=== PATIENT | female | born 1985 | race Caucasian/White ===

== ENCOUNTER 2019-11-17 00:15 | Inpatient (IN) | payer OTHER, MEDICAID ==
[~2019-11-17] VITALS: Ht 170.2 cm; Wt 63.0 kg
[2019-11-17 00:24] VITALS: BP 135/76
[2019-11-17] MEDS ORDERED: KLONOPIN1 MG PO (00:26)
[2019-11-17] MEDS ORDERED: BUSPAR30 MG PO (00:27)
[2019-11-17] MEDS ORDERED: METHADONE HCL50 GM PO (00:27)
[2019-11-17 01:15] LABS: ABSOLUTE BASOPHILS 0.1 thou/uL (0.0-0.2); ABSOLUTE EOSINOPHILS 0.3 thou/uL (0.0-0.7); ABSOLUTE LYMPHOCYTES 2.5 thou/uL (0.8-5.3); ABSOLUTE MONOCYTES 0.5 thou/uL (0.0-1.2); BASOPHILS 0.7 %; EOSINOPHILS 3.4 %; HEMATOCRIT 34.9 % (37.0-47.0); HEMOGLOBIN 12.4 gm/dL (12.0-15.0); LYMPHOCYTES 30.2 %; MCH 32.2 pg (26.0-34.0); MCHC 35.6 g/dL (28.0-37.0); MCV 90.4 fL (80.0-100.0); MONOCYTES 6.3 %; NUCLEATED RBCS 0 /100WBC; PLATELET COUNT* 224 thou/uL (150-400); POLYS 59.4 %; RBC 3.85 mil/uL (4.20-5.00); WBC 8.4 thou/uL (4.0-11.0)
[2019-11-17 01:21] LABS: CALCIUM 8.2 mg/dL (8.5-10.1); POTASSIUM 2.4 mmol/L (3.5-5.1)
[2019-11-17 03:19] VITALS: BP 143/79
[2019-11-17 04:00] VITALS: BP 125/83
--- NOTE | 2019-11-17 06:43 | NUR ---
PATIENT ARRIVED ON UNIT AT APPROX 0330. PATIENT ALERT AND ORIENTED TIMES FOUR. MINOR COMPLAINTS OF PAIN NOTED IN HER LEFT ARM, AT INCISION SITE. INDPENDENT WITH AMBULATION. VITAL SIGNS NORMAL. 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
--- NOTE | 2019-11-17 11:34 | NUR ---
SPOKE WITH PATIENT ABOUT FAMILY AND FRIENDS CALLING UP AND WANTING INFORMATION CONCERNING HER. PT AGREED THAT I SHOULD NOT GIVE HER MEDICAL INFORMATION OVER THE PHONE AND SHE WILL CALL HER FAMILY AND FRIENDS TO UPDATE THEM ON HER CONDITION.
--- NOTE | 2019-11-17 12:20 | NUR ---
Nutrition: Pt admitted with abscess on arm. Consult received for "other." Pt now on regular diet. Wt: 140#. No albumin recorded. Labs, meds, hx noted. Low nutrition risk at this time. GOALS: >75% of meals consumed.
--- NOTE | 2019-11-17 13:23 | NUR ---
Pt is A&O. Resides at home with family. Independent. No DME. No hx of HH or SNF. Goal is home at mo. Following.
--- NOTE | 2019-11-17 17:35 | NUR ---
SPOKE WITH PT AND SHE AGREED THAT THE HER PASS CODE PRIVACY CODE SHOULD BE 9828.
--- NOTE | 2019-11-17 17:38 | NUR ---
PT SEEM A LITTLE LETHARGIC, WILL HOLD METHADONE UNTIL THIS EVENING.
[2019-11-17 19:50] VITALS: BP 120/50
[2019-11-18] VITALS: BP 124/88
[2019-11-18 04:13] VITALS: BP 119/80
--- NOTE | 2019-11-18 07:27 | NUR ---
PT CARE ASSUMED AT 1930. SAT MAINTAINED IN RA. ALERT AND ORIENTED X4. PT IS ANXIOUS. DENIES PAIN. CALL LIGHT WITHIN REACH AND BED IN LOW POSITION. HOURLY ROUNDING DONE FOR PT SAFETY.
--- NOTE | 2019-11-18 07:50 | CON ---
[address] [address] CONSULTATION Name: SVETLANA TREJO Room: [address] IN M.R.#: [id number] Admission: 11/17/19 Attend Phys: Berenice Rojas Discharge: Date of : 83 Report #: [id number] THIS REPORT FOR: //name// cc: Joel Ibarra MD, Bryan C. MD ~ THIS REPORT FOR: //name// CC: Joel Marcum DATE OF SERVICE: 11/17/2019 INFECTIOUS DISEASE CONSULTATION ATTENDING PHYSICIAN: Dr. Morrell. REASON FOR EVALUATION: Left elbow abscess. HISTORY OF PRESENT ILLNESS: Chart reviewed, patient examined. This 34-year-old woman with a history of polysubstance abuse including injection drug use, who presented through the Emergency Room with complaints of increasing pain associated with the injection site, left elbow and felt there was a worsening abscess. Described current signs of inflammation, warmth, swelling, erythema and tenderness with decreased range of motion. It is not clear if she had significant systemic illness, although she does admit to feeling hot inside and diminished appetite. Denies significant pulmonary or gastrointestinal related complaints. She did undergo 2 separate debridement procedures. Cultures of that specimen as well as blood cultures are pending. She is empirically started on antimicrobial therapy with vancomycin. ALLERGIES: SULFA. MEDICATIONS: Currently include nicotine patch, methadone, buspirone, p.r.n. antiemetics. PAST MEDICAL HISTORY: As described above. SOCIAL HISTORY: Polysubstance abuse. FAMILY HISTORY: Noncontributory. REVIEW OF SYSTEMS: As above. PHYSICAL EXAMINATION: GENERAL: She is alert, cooperative, appropriate. She is in moderate distress secondary to the left upper extremity pain, appears somewhat [place] [address] CONSULTATION Name: SVETLANA TREJO Room: [address]#: [id number] Admission: 11/17/19 Attend Phys: Berenice Rojas Discharge: Date of : 83 Report #: [id number] VITAL SIGNS: Temperature 98.1, pulse 84, respirations 14, blood pressure 125/83. SKIN: Warm, dry, no rashes. HEENT: Normocephalic. Extraocular muscles intact. NECK: Supple. LUNGS: Generally clear to auscultation. HEART: Regular. I do not appreciate murmur. ABDOMEN: Soft, nontender, nondistended. EXTREMITIES: Left upper extremity has a compression dressing over the site of the previous I and D. GENITOURINARY AND RECTAL: Deferred. LABORATORY DATA: Initial CBC: White count of 8.4, H and H 12.4 and 34.9, platelets of 224. Electrolytes: Sodium 139, potassium 3.4, chloride 102, bicarbonate is 30, anion gap of 7, BUN and creatinine 10 and 1.0, lactic acid 1.7. ASSESSMENT: Left elbow abscess as a complication of injection drug use. We will continue the vancomycin at this point. Certainly could be a variety of potential pathogens. We will await those culture results. Discussed with surgery, it is unclear to me whether they will need to do additional debridements. <ELECTRONICALLY SIGNED> By: Ant Romero MD 11/18/19 0750 [id number] Romero MD /nt
[2019-11-18 07:51] VITALS: BP 115/73
--- NOTE | 2019-11-18 11:03 | NUR ---
Nutrition: RD assessed pt yday. Consult today for "impaired skin." Pt is at low nutrition risk. Eating adequately. Still no albumin recorded. RD will order Lang for added protein in wound healing. Will follow up per protocol.
--- NOTE | 2019-11-18 11:38 | NUR ---
WOUND NURSE: PATIENT SEEN TO ADDRESS WOUND ON LEFT ELBOW CAUSED BY TRYING TO INJECT ILLICIT DRUGS INTO A VEIN. PRESENTS WITH RED, MUSHY TISSUE IN THE WOUND BED AND SMALL AMOUNT OF SANGUINOUS DRAINAGE PRESENT. THERE IS PERIWOUND REDNESS, WARMTH, AND INDURATION. LEFT ARM ALSO WITH NONPITTING EDEMA. 2 OPENINGS ARE PRESENT: LATERAL: 1.0 X 1.7 X 1.0 AND MEDIAL MEASURES 0.4 X 0.4 X 0.5 AND COMMUNICATES WITH THE OTHER. CLEANSED WITH NORMAL SALINE AND GAUZE. PACKED LIGHTLY USING THIN STRIP OF AQUACEL AG, THEN COVERED WITH A BORDERED FOAM DRESSING. PLACED A SINGLE LAYER OF SIZE E TUBIGRIP ON LEFT ARM TO HELP WITH EDEMA CONTROL. PATIENT INSTRUCTED SHE MAY REMOVE IT IF IT IS UNCOMFORTABLE.
--- NOTE | 2019-11-18 16:06 | NUR ---
ATTEMPTED TO CALL PT.IN ROOM. NO ANSWER. RN SAID SHE WAS SLEEPING. FAXED CRISIS HOTLINE IN[employer] TO FLOOR FOR NURSE TO GIVE TO PT. INCLUDES DRUG HELP HOTLINE, [facility] [place] ON ALCOHOLISM AND DRUG DEPENDENCE PHONE NUMBERS. IF PT.NEEDS HOME HEALTH NURSING FOR DRESSING CHANGES AT [facility]. [phone].
--- NOTE | 2019-11-18 16:30 | NUR ---
PT A&Ox4. UP AD [place]. VITALS STABLE. IV PATENT, PLACED BY INFUSION. LEFT ARM SWOLLEN. DRESSING CHANGED BY WOUND CARE, AQUACEL AG AND FOAM BANDAGE USED. DRESSING AND AQUACEL AG PACKING IS TO BE CHANGED THREE TIMES A WEEK. TUBAGRIP IN PLACE ON LEFT ARM. PAIN CONTROLLED. TOLERATING DIET. CALL LIGHT WITHIN REACH. WILL CONTINUE TO MONITOR.
[2019-11-18 19:50] VITALS: BP 132/79
[2019-11-18 23:52] VITALS: BP 127/78
[2019-11-19 04:32] LABS: ABSOLUTE EOSINOPHILS 0.3 thou/uL (0.0-0.7); ABSOLUTE LYMPHOCYTES 2.6 thou/uL (0.8-5.3); ABSOLUTE MONOCYTES 0.5 thou/uL (0.0-1.2); ABSOLUTE NEUTROPHILS 2.6 thou/uL (1.6-8.1); BASOPHILS 0.7 %; EOSINOPHILS 5.6 %; HEMATOCRIT 34.7 % (37.0-47.0); LYMPHOCYTES 43.1 %; MCH 31.4 pg (26.0-34.0); MCHC 34.6 g/dL (28.0-37.0); MCV 90.8 fL (80.0-100.0); MONOCYTES 8.5 %; NUCLEATED RBCS 0 /100WBC; PLATELET COUNT* 265 thou/uL (150-400); POLYS 42.1 %; RBC 3.82 mil/uL (4.20-5.00); RDW-CV 12.4 % (10.5-14.5); WBC 6.1 thou/uL (4.0-11.0)
[2019-11-19 04:58] LABS: ALBUMIN 2.6 g/dL (3.4-5.0); CALCIUM 7.9 mg/dL (8.5-10.1); CREATININE 0.8 mg/dL (0.6-1.3); TOTAL BILIRUBIN 0.3 mg/dL (<0.1-1.0); TOTAL PROTEIN 6.1 g/dL (6.4-8.2)
--- NOTE | 2019-11-19 05:40 | NUR ---
PT ALERT AND ORIENTED X4. VSS ON RA. MEDS GIVEN PER EMAR. IV ABX INFUSED. PT SLEPT WELL THIS SHIFT. [employer] INDUSTRIAL ELECTRICIAN JOURNEYMAN TO LEFT ARM. CALL LIGHT WITHIN REACH. HOURLY ROUNDINGS MADE. WILL CONTINUE TO MONITOR.
[2019-11-19 08:05] VITALS: BP 124/76
[2019-11-19 10:34] VITALS: BP 124/76
[2019-11-19 12:26] VITALS: BP 118/68
[2019-11-19 15:36] VITALS: BP 115/78
--- NOTE | 2019-11-19 17:41 | NUR ---
PT A&OX4 VSS. PT UP AD [place], GAIT STEADY. IV TO RFA, PATENT. NO REDNESS/SWELLING NOTED AT SITE. FLUIDS DC'D PER PHYSICIAN. PT REMAINS ON IV ABX PENDING CULTURES. METHADONE ADMINSTERED DIRECTED. PT DENIES PAIN. PTUP TO SHOWER THIS SHIFT, NO COMPLAINTS. DRESSING TO L ARM C/D/I. ID VISITED THIS PT THIS AFTERNOON. PT RESTS ION BED WITH CALL LIGHT IN REACH. WILL CONTINUE TO MONITOR.
[2019-11-19 19:40] VITALS: BP 131/88
[2019-11-20] VITALS: BP 119/62
--- NOTE | 2019-11-20 06:48 | NUR ---
PT SLEPT WELL THIS SHIFT. MEDS GIVEN PER EMAR. ASSESSMENT DOCUMENTED. CALL LIGHT WITHIN REACH. HOURLY ROUNDINGS MADE. WILL CONTINUE TO MONITOR.
[2019-11-20 08:10] VITALS: BP 111/70
[2019-11-20 12:40] VITALS: BP 103/66; BP 150/65
[2019-11-20] MEDS ORDERED: KEFLEX500 M1 PO (15:58)
[2019-11-20 16:01] VITALS: BP 121/84
--- NOTE | 2019-11-20 17:13 | NUR ---
PT A&OX4 VSS. IV ABX ADMINISTERED THIS SHIFT. DC TO HOME PENDING CULTURE RESULTS. PT REMAINS CONTINENT OF B/B. PT UP AD [place], GAIT STEADY. ID PHYSICIAN CLEARED PT TO DC TO HOME ON KEFLEX. DR BAER NOTIFIED. IV TO RFA DC'D PRIOR TO PT LEAVING UNIT. NO REDNESS/SWELLING NOTED AT THE SITE. DRESSING TO R ELBOW CHANGED AND PHOTO COLLECTED AND PLACED TO CHART. PT EDUCATED REGARDING WOUND CARE. PT STATES UNDERSTANDING OF DC INSTRUCTIONS, F/U INFORMATION AND RX INFO PROVIDED. PT DRESSED INDEPENDENTLY AND CONTACTED RIDE. PT BELONGINGS REQUESTED FROM SECURITY, AND HOME MEDS COLLECTED FROM PHARMACY. PT ESCORTED BY NURSING STAFF TO ED EXIT IN WHEELCHAIR.
== END 2019-11-20 17:00 | disposition home or self-care (01) | DRG 581 ==
LOC: M.ERS 00:15 → M.TBA-ER 02:16 → M.2W 02:16
PROVIDERS: Internal Medicine; Personal Emergency Response Attendant; ADMIT Internal Medicine
PROC: 0J9H0ZZ Drainage of Left Lower Arm Subcutaneous Tissue and Fascia, Open Approach (ICD-10-PCS; principal; 2019-11-17)
DX: L02.414 Cutaneous abscess of left upper limb (principal); F15.10 Other stimulant abuse, uncomplicated; F41.9 Anxiety disorder, unspecified; F17.210 Nicotine dependence, cigarettes, uncomplicated; F19.10 Other psychoactive substance abuse, uncomplicated; Z88.2 Allergy status to sulfonamides; Z82.49 Family history of ischemic heart disease and other diseases of the circulatory system

== ENCOUNTER → 2019-11-29 | Outpatient (CLI) | payer OTHER, MEDICAID ==
[~2019-11-29] MED LIST: BUSPAR30 MG PO; KEFLEX500 M1 PO; KLONOPIN1 MG PO; METHADONE HCL50 GM PO
== END ==
LOC: M.WC 09:00
DX: T81.89XA Other complications of procedures, not elsewhere classified, initial encounter (principal); L02.414 Cutaneous abscess of left upper limb; J45.909 Unspecified asthma, uncomplicated; F41.0 Panic disorder [episodic paroxysmal anxiety]; F17.290 Nicotine dependence, other tobacco product, uncomplicated; F41.9 Anxiety disorder, unspecified; Y92.89 Other specified places as the place of occurrence of the external cause; Y83.8 Other surgical procedures as the cause of abnormal reaction of the patient, or of later complication, without mention of misadventure at the time of the procedure

== ENCOUNTER → 2019-12-06 | Outpatient (CLI) | payer OTHER, MEDICAID | LOC: M.WC 04:26 | DX: T81.89XD Other complications of procedures, not elsewhere classified, subsequent encounter (principal); L02.414 Cutaneous abscess of left upper limb; J45.909 Unspecified asthma, uncomplicated; J42 Unspecified chronic bronchitis; F41.0 Panic disorder [episodic paroxysmal anxiety]; F11.90 Opioid use, unspecified, uncomplicated; F41.9 Anxiety disorder, unspecified; F17.290 Nicotine dependence, other tobacco product, uncomplicated; Y83.8 Other surgical procedures as the cause of abnormal reaction of the patient, or of later complication, without mention of misadventure at the time of the procedure ==

== ENCOUNTER → 2019-12-13 | Outpatient (CLI) | payer OTHER, MEDICAID | LOC: M.WC 04:34 | DX: T81.89XD Other complications of procedures, not elsewhere classified, subsequent encounter (principal); J45.909 Unspecified asthma, uncomplicated; F17.290 Nicotine dependence, other tobacco product, uncomplicated; F41.0 Panic disorder [episodic paroxysmal anxiety]; F41.9 Anxiety disorder, unspecified; Y83.8 Other surgical procedures as the cause of abnormal reaction of the patient, or of later complication, without mention of misadventure at the time of the procedure ==